=== PATIENT | female | born 1995 | race African-American/Black ===

== ENCOUNTER 2020-11-14 02:22 | Inpatient (IN) ==
[2020-11-14] MEDS ORDERED: ONDANSETRON 4 MG/2 ML VIAL IV PRN ×2 (02:28→04:37)
[2020-11-14] MEDS ORDERED: OXYTOCIN/LR 20 UNIT/1,000 ML BAG IV SCH (02:30)
[2020-11-14] MEDS ORDERED: LACTATED RINGERS 1,000 ML IV SCH (02:30)
[2020-11-14] MEDS ORDERED: ONDANSETRON 4 MG/2 ML VIAL IV ONE (02:36)
[2020-11-14] MEDS ORDERED: FAMOTIDINE 20 MG/2 ML VIAL IV ONE (02:36)
[2020-11-14] MEDS ORDERED: diphenhydrAMINE 50 MG/1 ML VIAL IV PRN ×2 (02:36)
[2020-11-14] MEDS ORDERED: LACTATED RINGERS 1,000 ML IV ONE (02:36)
[2020-11-14] MEDS ORDERED: hydrOXYzine HCL 25 MG/1 ML VIAL IM PRN (02:36)
[2020-11-14] MEDS ORDERED: ePHEDrine 50 MG/ML VIAL IV PRN (02:36)
[2020-11-14] MEDS ORDERED: NALOXONE 0.4 MG/ML VIAL IV PRN (02:36)
[2020-11-14] MEDS ORDERED: CITRIC ACID/SODIUM CITRATE 30 ML UDCUP PO ONE (02:36)
[2020-11-14] MEDS ORDERED: PROMETHAZINE 25 MG/1 ML VIAL IM ONE (02:36)
[2020-11-14] MEDS ORDERED: MEPERIDINE 50 MG/1 ML VIAL IV ONE (02:46)
[2020-11-14] MEDS ORDERED: MEPERIDINE 50 MG/1 ML VIAL ONE (02:47)
[2020-11-14 02:50] LABS: Basophils % 0.3 % (0.0-0.8); Eosinophils # 0.1 10*3/uL (0.0-0.87); Eosinophils % 0.5 % (0.00-10.9); Hematocrit 34.6 VOL% (35.7-47.0); Hemoglobin 11.4 GM/DL (12.0-16.0); Immature Granulocytes % 0.3 %; Immature Granulocytes Absolute 0.03 #; Lymphocytes # 2.7 10*3/uL (1.4-4.0); Lymphocytes % 24.8 % (21.3-54.2); Mean Corpuscular HGB Conc 32.9 GM/DL (32-36); Mean Platelet Volume 11.5 FL (9.6-12.0); Monocytes % 10.2 % (1.7-12.7); Neutrophils % 63.9 % (38.7-73.9); Platelet Count 163 T/CUMM (130-400); Red Blood Count 3.76 MC/CUMM (3.8-5.5); Red Cell Distribution Width 14.3 % (9.3-17.3)
[2020-11-14] MEDS ORDERED: fentaNYL 2 MCG/ROPIV 0.2% EPID 100 ML EPIDURAL SCH (03:00)
[2020-11-14] MEDS ORDERED: METHYLERGONOVINE 0.2 MG/1 ML AMP ONE (03:01)
[2020-11-14] MEDS ORDERED: CARBOPROST TROMETHAMINE 250 MCG/ML AMP IM ONE (03:01)
[2020-11-14] MEDS ORDERED: TRANEXAMIC ACID 1,000 MG/10 ML VIAL ONE (03:01)
[2020-11-14] MEDS ORDERED: OXYTOCIN/LR 20 UNIT/1,000 ML BAG IV ONE ×2 (03:01→04:37)
[2020-11-14] MEDS ORDERED: miSOPROStoL 200 MCG TABLET ONE (03:01)
[2020-11-14 03:13] LABS: Alanine Aminotransferase 13 U/L (13-56); Albumin 2.7 G/DL (3.4-5.0); Alkaline Phosphatase 123 U/L (45-117); Aspartate Amino Transferase 16 U/L (0-37); Bilirubin,Total < 0.39 MG/DL (0.2-1.0); Calcium 8.9 MG/DL (8.5-10.1); Estimated Glom Filtration Rate 138 ML/MIN; Total Protein 7.3 G/DL (6.4-8.3)
[2020-11-14 03:14] LABS: Blood Urea Nitrogen 7 MG/DL (7-18); Carbon Dioxide 23 MMOL/L (21-32); Glucose 95 MG/DL (74-106); Osmolality,Calculated 274.5 MOS/KG (273-304); Potassium 3.3 MMOL/L (3.5-5.1); Sodium 139 MMOL/L (136-145)
[2020-11-14] MEDS ORDERED: BENZOCAINE 20%/MENTHOL 0.5% SPRAY 56 GM CAN TOP PRN (04:37)
[2020-11-14] MEDS ORDERED: LANOLIN 50% CREAM 0.3 OZ TUBE TOP PRN (04:37)
[2020-11-14] MEDS ORDERED: WITCH HAZEL PADS 100/JAR TOP PRN (04:37)
[2020-11-14] MEDS ORDERED: RHO(D) IMMUNE GLOBULIN 300 MCG SYRINGE IM ONE (04:37)
[2020-11-14] MEDS ORDERED: DIPH/TET/ACEL PERT BOOSTER VACCINE 0.5 ML VIAL IM ONE (04:37)
[2020-11-14] MEDS ORDERED: HYDROCORTISONE 2.5% RECTAL CREAM 30 GM TUBE TOP PRN (04:37)
[2020-11-14] MEDS ORDERED: IBUPROFEN 800 MG TABLET PO PRN (04:37)
[2020-11-14] MEDS ORDERED: BISACODYL 10 MG SUPP RECTAL PRN (04:37)
[2020-11-14] MEDS ORDERED: MEASLES/MUMPS/RUBELLA VACCINE 0.5 ML VIAL SUBCUT ONE (04:37)
[2020-11-14] MEDS ORDERED: ACETAMINOPHEN 325 MG TABLET PO PRN (04:37)
[2020-11-14] MEDS ORDERED: oxyCODONE/ACETAMINOPHEN 5-325 MG TABLET PO PRN ×2 (04:37)
[2020-11-14 04:44] LABS: Cord Arterial Blood HCO3 16.7 MMOL/L
[2020-11-14 04:47] LABS: Cord Venous Blood HCO3 20.7 MMOL/L; Cord Venous Blood PCO2 52.7 MMHG; Cord Venous Blood PO2 25.1
[2020-11-14] MEDS: DOCUSATE SODIUM 100 MG CAPSULE PO SCH ×2 (10:16→21:15)
[2020-11-15] MEDS ORDERED: POTASSIUM CHLORIDE 20 MEQ TABLET PO PRN (03:25)
[2020-11-15 06:40] LABS: Basophils % 0.3 % (0.0-0.8); Eosinophils # 0.2 10*3/uL (0.0-0.87); Eosinophils % 1.5 % (0.00-10.9); Hematocrit 33.5 VOL% (35.7-47.0); Hemoglobin 10.6 GM/DL (12.0-16.0); Immature Granulocytes % 0.4 %; Immature Granulocytes Absolute 0.04 #; Lymphocytes # 2.8 10*3/uL (1.4-4.0); Lymphocytes % 26.3 % (21.3-54.2); Mean Corpuscular HGB Conc 31.6 GM/DL (32-36); Mean Corpuscular Volume 94.6 FL (87-102); Mean Platelet Volume 11.2 FL (9.6-12.0); Monocytes % 7.6 % (1.7-12.7); Neutrophils % 63.9 % (38.7-73.9); Platelet Count 159 T/CUMM (130-400); Red Blood Count 3.54 MC/CUMM (3.8-5.5); Red Cell Distribution Width 14.6 % (9.3-17.3); White Blood Count 10.8 T/CUMM (4-12)
[2020-11-15 06:58] LABS: Hypochromasia Slight; Microcytosis Slight; Platelet Estimate Adequate
[2020-11-15 07:26] VITALS: BP 94/55
[2020-11-15] MEDS: DOCUSATE SODIUM 100 MG CAPSULE PO SCH (07:43)
== END 2020-11-15 16:05 | disposition home or self-care (01) | DRG 807 ==
LOC: N.LDOUT 02:22 → N.LD 02:23 → N.OB 07:59
PROVIDERS: ADMIT Obstetrics & Gynecology; ATTEND Obstetrics & Gynecology

== ENCOUNTER 2022-09-18 04:21 | Inpatient (IN) ==
[2022-09-18] MEDS ORDERED: ONDANSETRON 4 MG/2 ML VIAL IV PRN (04:27)
[2022-09-18] MEDS ORDERED: BUTORPHANOL 2 MG/ML VIAL IV PRN (04:27)
[2022-09-18] MEDS ORDERED: CARBOPROST TROMETHAMINE 250 MCG/ML AMP IM PRN (04:27)
[2022-09-18] MEDS ORDERED: miSOPROStoL 200 MCG TABLET RECTAL PRN (04:27)
[2022-09-18] MEDS ORDERED: TRANEXAMIC ACID 1,000 MG in SODIUM CHLORIDE 0.9% 100 ML IV PRN (04:27)
[2022-09-18] MEDS ORDERED: METHYLERGONOVINE 0.2 MG/1 ML AMP IM PRN (04:27)
[2022-09-18] MEDS ORDERED: OXYTOCIN/LR 20 UNIT/1,000 ML BAG IV SCH (04:30)
[2022-09-18] MEDS ORDERED: OXYTOCIN/LR 30 UNIT/1,000 ML BAG IV PRN (04:30)
[2022-09-18 04:59] LABS: Basophils % 0.3 % (0.0-0.8); Eosinophils # 0.1 10*3/uL (0.0-0.87); Eosinophils % 0.5 % (0.00-10.9); Hematocrit 30.1 VOL% (35.7-47.0); Hemoglobin 8.9 GM/DL (12.0-16.0); Immature Granulocytes % 0.7 %; Immature Granulocytes Absolute 0.07 #; Lymphocytes % 29.1 % (21.3-54.2); Mean Corpuscular HGB Conc 29.6 GM/DL (32-36); Mean Corpuscular Volume 79.2 FL (87-102); Mean Platelet Volume 10.4 FL (9.6-12.0); Monocytes % 9.6 % (1.7-12.7); NRBC # 0.04 10*3/uL; Neutrophils % 59.8 % (38.7-73.9); Platelet Count 238 T/CUMM (130-400); Red Cell Distribution Width 15.9 % (9.3-17.3); White Blood Count 10.3 T/CUMM (4-12)
[2022-09-18] MEDS ORDERED: MEPERIDINE 25 MG/1 ML VIAL IV PRN (04:59)
[2022-09-18 05:21] LABS: Alanine Aminotransferase 12 U/L (13-56); Albumin 2.7 G/DL (3.4-5.0); Alkaline Phosphatase 104 U/L (45-117); Aspartate Amino Transferase 15 U/L (0-37); Bilirubin,Total < 0.39 MG/DL (0.20-1.00); Blood Urea Nitrogen 8 MG/DL (7-18); Calcium 8.8 MG/DL (8.5-10.1); Carbon Dioxide 22 MMOL/L (21-32); Chloride 108 MMOL/L (98-107); Glucose 93 MG/DL (74-106); Osmolality,Calculated 276.4 MOS/KG (273-304); Potassium 4.1 MMOL/L (3.5-5.1); Sodium 140 MMOL/L (136-145)
[2022-09-18] MEDS ORDERED: ePHEDrine 50 MG/ML VIAL IV PRN (08:49)
[2022-09-18] MEDS ORDERED: FAMOTIDINE 20 MG/2 ML VIAL IV ONE (08:49)
[2022-09-18] MEDS ORDERED: PROMETHAZINE 25 MG/1 ML VIAL IM PRN (08:49)
[2022-09-18] MEDS ORDERED: hydrOXYzine HCL 25 MG/1 ML VIAL IM PRN (08:49)
[2022-09-18] MEDS ORDERED: CITRIC ACID/SODIUM CITRATE 30 ML UDCUP PO ONE (08:49)
[2022-09-18] MEDS ORDERED: NALOXONE 0.4 MG/ML VIAL IV PRN (08:49)
[2022-09-18] MEDS ORDERED: diphenhydrAMINE 50 MG/1 ML VIAL IV PRN (08:49)
[2022-09-18] MEDS ORDERED: fentaNYL 2 MCG/ROPIV 0.2% EPID 100 ML EPIDURAL SCH (09:00)
[2022-09-18] MEDS: LACTATED RINGERS 1,000 ML IV SCH ×2 (09:07→11:17)
[2022-09-18 13:11] LABS: Bacteria,Urine Occasional /HPF (Few); Glucose,Urine (UA) Negative (Negative); Mucus,Urine Occasional /LPF (Occasional); Protein,Urine Negative (Negative); RBC,Urine <1 /HPF (0-4); Urine Appearance Clear (Clear); Urine Color Yellow (Yellow)
[2022-09-18 13:12] LABS: Bilirubin,Urine Negative (Negative); Blood, Urine Negative (Negative); Ketones,Urine Negative (Negative); Nitrite,Urine Negative (Negative); Urine Urobilinogen 0.2 eU/dL (<2.0)
[2022-09-18] MEDS ORDERED: METHYLERGONOVINE 0.2 MG/1 ML AMP ONE (15:04)
[2022-09-18] MEDS ORDERED: miSOPROStoL 200 MCG TABLET ONE (15:04)
[2022-09-18] MEDS ORDERED: CARBOPROST TROMETHAMINE 250 MCG/ML AMP IM ONE (15:05)
[2022-09-18 15:43] LABS: Cord Arterial Blood HCO3 20.9 MMOL/L
[2022-09-18 15:48] LABS: Cord Venous Blood HCO3 22.9 MMOL/L; Cord Venous Blood PCO2 42.1 MMHG; Cord Venous Blood PO2 25.6
[2022-09-18] MEDS ORDERED: HYDROCORTISONE 2.5% RECTAL CREAM 30 GM TUBE TOP PRN (17:47)
[2022-09-18] MEDS ORDERED: BENZOCAINE 20%/MENTHOL 0.5% SPRAY 56 GM CAN TOP PRN (17:47)
[2022-09-18] MEDS ORDERED: MEASLES/MUMPS/RUBELLA VACCINE 0.5 ML VIAL SUBCUT ONE (17:47)
[2022-09-18] MEDS ORDERED: OXYTOCIN/LR 20 UNIT/1,000 ML BAG IV ONE (17:47)
[2022-09-18] MEDS ORDERED: oxyCODONE/ACETAMINOPHEN 5-325 MG TABLET PO PRN ×2 (17:47)
[2022-09-18] MEDS ORDERED: DIPH/TET/ACEL PERT BOOSTER VACCINE 0.5 ML VIAL IM ONE (17:47)
[2022-09-18] MEDS ORDERED: BISACODYL 10 MG SUPP RECTAL PRN (17:47)
[2022-09-18] MEDS ORDERED: RHO(D) IMMUNE GLOBULIN 300 MCG SYRINGE IM ONE (17:47)
[2022-09-18] MEDS ORDERED: WITCH HAZEL PADS 100/JAR TOP PRN (17:47)
[2022-09-18] MEDS ORDERED: LANOLIN 50% CREAM 0.3 OZ TUBE TOP PRN (17:47)
[2022-09-18] MEDS ORDERED: IBUPROFEN 800 MG TABLET PO PRN (17:47)
[2022-09-18] MEDS ORDERED: ACETAMINOPHEN 325 MG TABLET PO PRN (17:47)
[2022-09-18] MEDS: DOCUSATE SODIUM 100 MG CAPSULE PO SCH (20:28)
[2022-09-19 06:13] LABS: Basophils % 0.3 % (0.0-0.8); Eosinophils # 0.1 10*3/uL (0.0-0.87); Eosinophils % 0.5 % (0.00-10.9); Hemoglobin 8.3 GM/DL (12.0-16.0); Immature Granulocytes % 0.5 %; Immature Granulocytes Absolute 0.07 #; Lymphocytes # 2.8 10*3/uL (1.4-4.0); Lymphocytes % 21.5 % (21.3-54.2); Mean Corpuscular HGB Conc 29.6 GM/DL (32-36); Mean Platelet Volume 10.6 FL (9.6-12.0); Monocytes # 1.2 10*3/uL (0.11-0.8); Monocytes % 8.7 % (1.7-12.7); NRBC # 0.03 10*3/uL; Neutrophils % 68.5 % (38.7-73.9); Platelet Count 209 T/CUMM (130-400); Red Cell Distribution Width 16.3 % (9.3-17.3); White Blood Count 13.2 T/CUMM (4-12)
[2022-09-19] MEDS: DOCUSATE SODIUM 100 MG CAPSULE PO SCH ×2 (08:30→20:42)
[2022-09-20] MEDS: DOCUSATE SODIUM 100 MG CAPSULE PO SCH (08:20)
[2022-09-20 08:38] VITALS: BP 96/52
== END 2022-09-20 12:35 | disposition home or self-care (01) | DRG 807 ==
LOC: N.LD 04:21 → N.OB 18:16
PROVIDERS: ADMIT Obstetrics & Gynecology; ATTEND Obstetrics & Gynecology